=== PATIENT | female | born 1975 | race Caucasian/White ===

== ENCOUNTER → 2017-03-18 | Outpatient (CLI) | payer OTHER ==
--- NOTE | 2017-03-18 09:20 | RADIOLOGY IMAGING REPORT ---
FACILITY: [facility] PATIENT NAME: Bria Denney : 1975 MR: [id number] V: [id number] EXAM DATE: ORDERING PHYSICIAN: DEE DEE BARRIOS TECHNOLOGIST: Location: [facility] Patient: Bria Denney : 1975 Visit/Account:[id number] Date of Sevice: 03/18/2017 Abdominal ultrasound Indication: Right upper quadrant pain Comparison: None Findings: Liver is normal in size, contour, and echotexture and measures 15.6 cm in length. There is normal hep atopedal portal venous flow. Incidental note of Naomi's lobe Gallbladder wall thickness is 1.5 mm with no evidence of shadowing stone or sludge within the gallbla dder lumen. Negative sonographic Friedman's sign reported by the technologist. Common duct measures 3.7 mm in maximum diameter with no evidence of shadowing stone. The head and proximal body of the pancreas is unremarkable. The distal body and tail is obscured by o verlying bowel gas. Abdominal aorta and IVC are patent and unremarkable. Right kidney measures 10.3 x 3.9 x 5.3 cm and has a normal sonographic appearance. IMPRESSION: 1. Unremarkable right upper quadrant ultrasound Report Dictated By: Wiley Zhang MD at 03/18/2017 9:15 AM Report E-Signed By: Wiley Zhang MD at 03/18/2017 9:17 AM WSN:[id number]
== END ==
LOC: US 08:08
PROVIDERS: ATTEND Family Medicine
DX: Q44.7 Other congenital malformations of liver (principal)
CPT/HCPCS: 76705

== ENCOUNTER → 2017-03-27 | Outpatient (CLI) | payer OTHER ==
[~2017-03-27] MED LIST: SINCALIDE 5 MCG VIAL INJ ONE; WATER STERILE(*) 10 ML VIAL 10 ML ONE
--- NOTE | 2017-03-27 11:19 | RADIOLOGY IMAGING REPORT ---
FACILITY: [facility] PATIENT NAME: Bria Denney : 1975 MR: [id number] V: [id number] EXAM DATE: ORDERING PHYSICIAN: DEE DEE BARRIOS TECHNOLOGIST: Location: [facility] Patient: Bria Denney : 1975 Visit/Account:[id number] Date of Sevice: 03/27/2017 EXAMINATION: Nuclear Medicine HIDA Scan with Kinevac Stimulation 03/27/2017 9:00 AM HISTORY: Right upper quadrant pain TECHNIQUE: 6.3 mCi Tc99m Mebrofenin was injected intravenously. Multiple sequential gamma camera annia ges of the abdomen were obtained for 60 minutes. At that time, Kinevac was injected intravenously and an additional 30 minutes of gamma camera imaging data was acquired. A computer-generated region of i nterest was placed around the gallbladder and time-activity curve for the gallbladder was derived. Th e gallbladder ejection fraction was calculated. COMPARISON STUDIES: Ultrasound 03/18/2017 is unremarkable FINDINGS: Liver uptake and excretion: normal Time to appearance: Bile ducts: 7 minutes. Gallbladder: 9 minutes. Duodenum: 15 minutes. Duodenal- gastric reflux / extravasation: none Post IV Kinevac: excretion Patient symptoms: Mild nausea Ejection fraction = 88 %, (normal range > 35%). IMPRESSION: Normal study. The patient did report mild nausea following CCK administration but that is not unusua l. Report Dictated By: Tom Barry MD at 03/27/2017 10:56 AM Report E-Signed By: Tom Barry MD at 03/27/2017 11:16 AM WSN:[email or web address]
--- NOTE | 2017-03-27 15:33 | RADIOLOGY IMAGING REPORT ---
FACILITY: [facility] [place] PATIENT NAME: SRINIVAS GERBER : [id number] MR: [id number] V: [id number] EXAM DATE: [id number] ORDERING PHYSICIAN: DEE DEE BARRIOS TECHNOLOGIST: Ann Baig PROCEDURE:BILATERAL DIGITAL SCREENING MAMMOGRAM WITH CAD ASSISTED INTERPRETATION & 3D TOMOSYNTHESIS COMPARISON:None. INDICATIONS:SCREENING FINDINGS: Breast parenchyma is extremely dense. There are no mammographic findings concerning for malignancy. DIAGNOSTIC CATEGORY 1--NEGATIVE. RECOMMENDATIONS: ROUTINE MAMMOGRAM AND CLINICAL EVALUATION IN 1 YR. IMPRESSION: BIRADS 1: Negative Dictated by: Tom Barry on 03/27/2017 at 13:30 Transcribed by: JAYY on 03/27/2017 at 14:48 Approved by: Tom Barry on 03/27/2017 at 15:32 [facility]
== END ==
LOC: NUC 00:23
PROVIDERS: ATTEND Family Medicine
DX: Z12.31 Encounter for screening mammogram for malignant neoplasm of breast (principal); R10.11 Right upper quadrant pain; R14.0 Abdominal distension (gaseous)
CPT/HCPCS: 77063; 77067; 78226; A4216; A9537; J2805

== ENCOUNTER → 2018-07-02 | Outpatient (CLI) | payer OTHER ==
--- NOTE | 2018-07-02 14:08 | RADIOLOGY IMAGING REPORT ---
[place] [facility] [place] SRINIVAS GERBER : [id number] MR: [id number] V: [id number] EXAM DATE: [id number] ORDERING PHYSICIAN: DEE DEE BARRIOS TECHNOLOGIST: Carolyne Diaz PROCEDURE: BILATERAL DIGITAL SCREENING MAMMOGRAM WITH CAD ASSISTED INTERPRETATION & 3D TOMOSYNTHESIS REASON FOR STUDY: Screening FAMILY HISTORY OF BREAST CANCER: None BREAST PROCEDURES/TREATMENTS: None COMPARISON: 03/27/17 VIEWS OBTAINED: Bilateral 2D & 3D full field CC & MLO projections BREAST DENSITY: The breasts are extremely dense which lowers the sensitivity of mammography. MAMMOGRAM FINDINGS: The parenchymal pattern has remained stable allowing for difference in mammographic technique & patient positioning. IMPRESSION: BIRADS 1: Negative. DIAGNOSTIC CATEGORY 1--NEGATIVE. RECOMMENDATIONS: ROUTINE MAMMOGRAM AND CLINICAL EVALUATION. Dictated by: Natalia Hess M.D. on 07/02/2018 at 13:40 Transcribed by: TACOS on 07/02/2018 at 13:52 Approved by: Natalia Hess M.D. on 07/02/2018 at 14:06 [facility]
== END ==
LOC: MAMO 01:16
PROVIDERS: ATTEND Family Medicine
DX: Z12.31 Encounter for screening mammogram for malignant neoplasm of breast (principal)
CPT/HCPCS: 77063; 77067